=== PATIENT | male | born 1960 | race Caucasian/White ===

== ENCOUNTER → 2024-10-09 11:52 | Outpatient (CLI) | payer MEDICARE, OTHER, SELFPAY ==
--- NOTE | 2024-10-09 12:27 | EKG_ITS ---
[address] [address] [address] [address] Test Date: 2024-10-09 Pat Name: Corey Lopez Department: [facility] Room: Gender: Male Mental Health Unit Lead Psychologist: LISA : 1960 Requested By: Order Number: [id number] Reading MD: Jason Beard Measurements Intervals [place] Rate: 53 P: 44 PA: 152 QRS: 18 QRSD: 82 T: 28 QT: 422 QTc: 395 Interpretive Statements Sinus bradycardia with sinus arrhythmia Electronically Signed On 10-11-2024 19:03:06 PST by Jason Beard
[2024-10-09 12:30] LABS: Add Manual Diff / Slide Review NO; Basophils Absolute Auto 100 /uL (0-100); Basophils Percent Auto 0.8 % (0-2); Eosinophils Absolute Auto 100 /uL (0-450); Eosinophils Percent Auto 1.8 % (2-4); Hematocrit 46.9 % (41-53); Hemoglobin 15.8 g/dL (13.5-17.5); Lymphocytes Absolute Auto 1700 /uL (1100-4500); Lymphocytes Percent Auto 27.6 % (25-40); Mean Corpuscular HGB Conc 33.7 % (30-36); Mean Corpuscular Hemoglobin 30.8 PG (26-34); Mean Corpuscular Volume 91.6 fL (80-100); Monocytes Absolute Auto 500 /uL (0-900); Monocytes Percent Auto 8.1 % (3-14); Neutrophils Absolute Auto 3800 /uL (1500-7000); Neutrophils Percent Auto 61.7 % (50-75); Platelet Count 227 X10^3/uL (150-400); Red Blood Cell Count 5.12 X10^6/uL (4.5-5.9); Red Cell Distribution Width 13.7 % (11.6-14.8); White Blood Cell Count 6.1 X10^3/uL (4.5-11.0)
[2024-10-09 12:44] LABS: Hemoglobin A1C% w Est Avg Glu 5.2 % (4.0-6.0)
[2024-10-09 12:50] LABS: Appearance Urine UA CLEAR; Bilirubin Urine UA NEGATIVE (NEGATIVE); Color Urine UA YELLOW; Glucose Urine UA NEGATIVE (Negative); Ketones Urine UA NEGATIVE (NEGATIVE); Leukocyte Esterase Urine UA NEGATIVE (NEGATIVE); Nitrite Urine UA NEGATIVE (Negative); Occult Blood Urine UA NEGATIVE (Negative); Protein Urine UA NEGATIVE (Negative); Urobilinogen Urine UA 0.2 E.U./dL (0.2); pH Urine UA 5.5 (4.5-8.0)
[2024-10-09 12:54] LABS: Blood Urea Nitrogen 19 mg/dL (9-20); Calcium 9.3 mg/dL (8.4-10.2); Carbon Dioxide 25 mmol/L (22-32); Chloride 107 mmol/L (98-107); Estimated Glomerular Filt Rate > 60 mL/min (>60); Glucose 98 mg/dL (80-110); HEMOLYSIS < 15 (0-50); Potassium 4.5 mmol/L (3.4-5.1); Sodium 139 mmol/L (137-145)
[2024-10-09 12:57] LABS: Bacteria Urine None Seen; Culture Indicated Urine Cult Not Indicated; RBC Urine None Seen (0-5/HPF); Squamous Epithelial Cell Urine None Seen (0-5/HPF); Urine Volume 10mL (spun); WBC Urine None Seen (0-5/HPF)
== END ==
PROVIDERS: Referring Provider Orthopaedic Surgery; Visit Provider Orthopaedic Surgery
DX: Z01.818 Encounter for other preprocedural examination (principal); R73.9 Hyperglycemia, unspecified; Z01.812 Encounter for preprocedural laboratory examination; N39.0 Urinary tract infection, site not specified
CPT/HCPCS: 36415; 80048; 81001; 83036; 85025; 93005

== ENCOUNTER 2025-01-02 08:44 | Day surgery (SDC) | payer MEDICARE, OTHER, SELFPAY ==
[2024-12-28 09:43] VITALS: BMI 25.8
[2025-01-02] VITALS (11 sets, daily range): BP systolic 90–143; BP diastolic 54–76; PULSE 50–74; RESP 11–19; TEMP 35.7–36.6; O2SAT 95–99; BMI 26.6
--- NOTE | 2025-01-02 06:00 | DI.RAD.S_ITS ---
PROCEDURE: XR KNEE LT 1TO2V INDICATIONS: TKA TECHNIQUE: 2 view(s) of the knee acquired. COMPARISON: [facility] [place], ART[place]O, XR KNEE 4+ VIEWS LEFT, 07/26/2024, 14:23. FINDINGS: Bones: Patient is status post knee joint arthroplasty. Hardware components are in expected positions. Visualized bony structures are intact. Soft tissues: Overlying postoperative changes are noted. IMPRESSION: Expected post-operative appearance of a knee arthroplasty. Dictated by: Inderjit Palencia M.D. on 01/02/2025 at 14:37 Approved by: Inderjit Palencia M.D. on 01/02/2025 at 14:37
[2025-01-02] MEDS: LACTATED RINGERS 1,000 ML 42 ML IV ×2 (09:31→13:37)
[2025-01-02] MEDS: VANCOMYCIN 1,000 MG in SODIUM CHLORIDE 0.9% 250 ML 250 MG IV (09:31)
[2025-01-02] MEDS: ACETAMINOPHEN 325 MG TABLET 975 MG PO (09:32)
[2025-01-02] MEDS: CELECOXIB 200 MG CAPSULE 400 MG PO (09:32)
--- NOTE | 2025-01-02 10:19 | PM.PREOP ---
Pre-operative Note Interval Note History & Physical reviewed/Exam performed by Physician: Yes Changes to H&P: No
--- NOTE | 2025-01-02 10:19 | PM.OP.1 ---
Operative Date/Time/Diagnoses Date of procedure: 01/02/25 Time of procedure: 11:00 Pre-op diagnosis: Left knee OA Post-op diagnosis: same Procedure & Clinicians Procedure: Left total knee arthroplasty Same procedure as scheduled: Yes Indications: The patient has had progressively worsening left knee pain with radiographic changes consistent with arthritis. Non-operative management has failed and the patient has requested total knee replacement. The risks, benefits and alternatives to surgery were discussed with the patient prior to proceeding. Risks discussed included, but were not limited to, failure to relieve pain, stiffness, infection, nerve damage, deep venous thrombosis, pulmonary embolism, stroke, coma, heart attack, permanent paralysis and , as well as the potential need for eventual revision of the prosthetic. Surgeon: Celeste Nixon Certified Indoor Environmentalist: Julieta Suh Anesthesia Type: General Operative Notes Findings: Severe left knee osteoarthritis, adequate bone, adequate stability Closure Type: primary Specimen(s): none sent Prosthetic devices, grafts, tissues, transplants, or devices: Nixon and Nephew nayan BCS 2 size femur 7, size 7 tibia, 38 mm patella, +10 poly Estimated Blood Loss (mL): 250 Blood products transfused: none Tourniquet time (min): 89 Procedure in detail: The patient was seen in the pre-operative area, where the patient identified the left knee as the operative site and this was marked with my initials. The patient received pre-operative antibiotics, and was taken to the operating room and placed on the operative table in the supine position. After satisfactory anesthesia, a director government out was performed. The left leg was encircled with a tourniquet about the proximal thigh, and the leg was prepared from the toes to the tourniquet with ChloroPrep in the usual fashion and draped through sterile drapes. The leg was elevated and exsanguinated with Eschmark bandage and the tourniquet inflated to [250] mmHg pressure. A PA was used during the procedure and was essential for intraoperative retraction and safe implantation of the components. The knee was approached through an approximately 18 cm incision centered over the patella and carried into the knee through a medial parapatellar arthrotomy. Portion of the medial and lateral meniscus was resected. Soft tissue was carefully mobilized around the patella the patella was measured with a caliper. Bone was resected from the patella and the patellar height was reconstituted with up an appropriate sized patellar component. A cover was then placed on the patella. A small amount of additional medial and lateral meniscus was resected. Derek pins were placed for robotic assisted navigation. A plan was taken and carefully developed in order to optimize range of motion and stability. He had about 11? of preoperative varus. We specifically released some of the medial collateral ligament superficially in order to allow balancing of the knee. A good quality plan was achieved. The Cori robotic assisted bur was used for the distal femoral resection. It looked like an appropriate distal femoral cut and the cut was made without difficulty. The rotation was assessed and the appropriate size femoral guide was placed on the distal femur and finishing cuts were made. There was no evidence of notching. The anterior, posterior and chamfer cuts were then made. The posterior osteophytes and soft tissues were then removed. The posterior capsule was injected with part of a mixture of 60 ml 0.25% Marcaine mixed with 20 ml Exparel for post operative pain control. The remainder of this mixture was injected into the capsule and subcutaneous tissues during cement curing. The tibial guide was meticulously navigated. The proximal tibial cut was made without difficulty. The rotation was assessed. The patient was placed in extension residual medial and lateral meniscus as well as any residual bone was carefully resected. [No] additional tibia was resected. Hemostasis was achieved especially posteriorly. Additional local was injected into the posterior capsule. The extension gap was assessed. The femoral component was trial was placed and the notch was finished. Trial tibial and femoral components were then placed and the knee placed through a range of motion. Range of motion was [0-130], with good stability throughout the range. The trials were then removed, and the tibia was finished. The bone was prepared with pulsatile lavage, and dried with a sponge. Cement was applied and the final prosthetics placed. Excess cement was removed during and after cement curing. A brief Betadine soak was performed. After confirming there was no extruded cement posteriorly, the final tibial insert was placed. The knee was copiously irrigated and the tourniquet deflated. Hemostasis was obtained with the Bovie cautery. The capsule was closed with interrupted # 1 Vicryl suture. The subcutaneous layer was closed with barbed sutures, and the skin with a running 3-0 V-Lock suture and Surgical glue. An Aquacel Ag dressing was applied and the patient was taken to recovery having tolerated the procedure well. Complications: none Post-operative Condition: stable Disposition: Acute Care Plan for aftercare: The patient will be maintained on a standard total knee replacement protocol with weight bearing as tolerated. The patient will receive aspirin and sequential compression devices for DVT prophylaxis. The patient will be discharged home when safe for the home environment.
--- NOTE | 2025-01-02 10:43 | SUR.PREOP ---
Block start time [1039] . Time out at 1030 Monitoring initiated and maintained throughout procedure. Oxygen and medications given per anesthesiologist instructions. Patient remained stable throughout procedure, no adverse reactions noted. Block end time [1041].
[2025-01-02] MEDS: CEFAZOLIN 2 GM/100 ML PREMIX 100 ML IV (10:55)
[2025-01-02] MEDS: TRANEXAMIC ACID 1,000 MG VIAL 1000 MG INJ ×2 (11:05→12:44)
--- NOTE | 2025-01-02 11:18 | SUR.OPER ---
Supine on padded OR bed. Pillow under head, arms secured on padded armboards <90 degree abduction. Safety belt across torso. Non-operative leg secured with tape over blanket over lower leg. Operative leg secured in DeMayo/Rufus/Nathe positioner. Foam padded brace at thigh of operative leg.
[2025-01-02] MEDS: BUPIVACAINE LIPOSOME 266 MG/20 ML VIAL INJ (11:24)
[2025-01-02] MEDS: BUPIVACAINE 0.25% (PF) 60 ML, EPINEPHrine 0.3 MG INJ (11:25)
--- NOTE | 2025-01-02 13:30 | SUR.PHASEI ---
Report called to CAMILA Rizo.
[2025-01-02] MEDS: ONDANSETRON 4 MG/2 ML INJ IV (13:34)
--- NOTE | 2025-01-02 13:36 | SUR.PHASEI ---
Marsha given per Dr. Donald.
--- NOTE | 2025-01-02 13:54 | SUR.PHASEI ---
Patient transferred to the floor with his belongings bag, phone and glasses. Bedside report given to Vilma. VS stable. Left knee dressing CDI.
--- NOTE | 2025-01-02 16:15 | PT.IIE ---
Current Diagnoses Unilateral primary osteoarthritis, left knee (01/02/25) Surgery Performed Operation Date: 01/02/25 10:45 Actual Procedures p Total Knee Arthroplasty - Robot(Left) - Celeste Nixon MD Surgical History (Last Updated 12/28/24 @ 09:51 by Flora Hauser, RN) H/O vasectomy History of bowel resection Medical History (Last Updated 12/28/24 @ 10:37 by Flora Hauser, RN) Ileostomy in place Knee fracture, left Left inguinal hernia (~2020) Ulcerative colitis Physical Therapy Inpatient Evaluation/Re-Eval M1 PT/OT-IP Prior Functional Status Start: 01/02/25 17:06 Freq: NEEDED Status: Active Protocol: Document 01/02/25 16:15 AB (Rec: 01/02/25 17:23 AB [id number]) Medical Review Prior Functional Status Medical History Reviewed Yes Communication able to make needs known Mobility and Gait pt stated that he was independent with all mobilities and ambulation wihtout AD Social History Household Members spouse Living Arrangements House Number of Floors (Floors) One Floor Number of Stairs To Enter/Railing? pt plans to stay at a friend's house on d/c: info provided is regarding pt's friends' house: with 2 steps without rails to enter Home Environment Standard Height Toilet,Tub/ Shower Home Equipment Front Wheel Walker,Straight Cane,Raised Toilet Seat w/ Armrests,Hand Held Shower Additional Social History Comment pt stated that he will be staying in a motel tonight and will go to his friend's house tomorrow M2 PT-IP Current Condition Start: 01/02/25 17:06 Freq: NEEDED Status: Active Protocol: Document 01/02/25 16:15 AB (Rec: 01/02/25 17:23 AB [id number]) Physical Therapy Current Condition Current Condition Evaluation Date 01/02/25 Treatment Diagnosis s/p L TKA; difficulty in walking Onset Date 01/02/25 M3 PT-IP Subjective Start: 01/02/25 17:06 Freq: NEEDED Status: Active Protocol: Document 01/02/25 16:15 AB (Rec: 01/02/25 17:23 AB [id number]) Subjective Physical Therapy Visit Type Type Initial Evaluation Visit Start Time 16:15 Visit Stop Time 17:00 Number of COOK SUPERVISOR Visits 0 Physical Therapy Visit Comments Patient Comments agreeable to do PT; wants to go home tonight Therapy Pain Assessment Pain Present Pain Present Denied Pain M4 PT-IP Mobility and Gait Start: 01/02/25 17:06 Freq: NEEDED Status: Active Protocol: Document 01/02/25 16:15 AB (Rec: 01/02/25 17:23 AB [id number]) PT-Bed Mobility Assessment Supine to Sit Supine to Sit Standby Assistance PT-Transfer Assessment Sit to and From Stand Sit to and from Stand Minimal Assistance,1 Person Assistance,Use of Upper Extremities Equipment Transfer Assistive Device Gait Belt,Front Wheeled Walker Orthotic/Prosthetic Devices or Brace: No Transfers Transfer Destination Chair Transfer Technique ambulated Transfer Ability Level of Assist Minimal Assistance,1 Person Assistance,Use of Upper Extremities Comments Mobility Comments pt in bed and spouse in room. pt stated that RLE is still ~ 50% numb but LLE is ok. informed pt regarding numbness and how it affecting motor control and stability. pt wanting to go home tonight and wants to do PT. obtained PLOF and home set up. BP: 131 /78 O2 sat: 97% HR: 51-55 completed supine to sit SBA. able to sit on EOB SBA. BP: 137/81 O2 sat 97 and HR: 59- 65 pt completed sit to stand min A and cues. ambulated in room using FWW initially mod A and cued for L quads activation and RLE control. pt stated that RLE is more numb than he thought. cued pt on RLE control and was able to walk in room afterwards with min A and cues. pt sat on chair. pt insisting on going home despite decrease RLE control. caregiver training conducted. educated spouse on how to use safety belt and how to assist pt. educated pt and spouse on stair climbing. spouse was able to put safety belt on pt and assisted pt with sit to stand. spouse ambulated pt towards the platform step using FWW min A. pt completed up/down step using SPC + DOOR TO DOOR SALES REPRESENTATIVE with PT assisting pt on first attempt requiring max A and max cues. pt and spouse counter demonstrated and PT assisted pt as well. pt ambulated back to his room using FWW min A and sat on chair. educated pt on safety. pt stated that they don't have to do stairs until tomorrow and they will have another person to assist them. pt and spouse without further concerns. Left pt with NAC. Gait Assessment Gait Gait Assistance Required: Minimum Assistance,Moderate Assistance Distance (Feet) 25 Able to Maintain Weight Bearing Status Yes During Gait Assistive Devices Assistive Device Gait Belt,Front Wheeled Walker Orthotic/Prosthetic Devices or Brace: No Gait Deviations General Gait Pattern Antalgic,Decreased Stride Length,Decreased Feet Clearance Factors Limiting Gait Function Factors Limiting Gait Function Decreased Activity Tolerance, Decreased Strength, Incoordination,Limited Range of Motion,Poor Balance,Poor Safety Awareness Stair Climbing Assessment Evaluation Level of Assist On Stairs Maximal Assistance,1 Person Assistance,2 Person Assistance Devices Stair Climbing Assistive Devices Straight Cane Technique/Endurance Stair Climbing Direction Ascend and Descend Stair Climbing Technique Step to Step Number of Steps Climbed 1 Query Text: Stair Climbing Set # Repetitions (reps) 2 PT-Balance Assessment Sitting Balance and Reactions Static Sitting Balance Ability Normal Dynamic Sitting Balance Ability Good Standing Balance and Reactions Static Standing Balance Ability Fair Dynamic Standing Balance Ability Fair Device Used FWW M5 PT-IP Objective Assessments Start: 01/02/25 17:06 Freq: NEEDED Status: Active Protocol: Document 01/02/25 16:15 AB (Rec: 01/02/25 17:23 AB [id number]) Orientation Orientation/Cognition Level of Alertness Alert Orientation Name,Place,Situation Language Function Ability Hard of Hearing Safety Awareness Decreased Safety Awareness Memory Description No Deficits Noted Sensation Assessment Sensation Gross Sensation Right LE Impaired Sensation Description Numbness Muscle Tone Muscle Tone WNL Yes M6 PT-IP Treatment Start: 01/02/25 17:06 Freq: NEEDED Status: Active Protocol: Document 01/02/25 16:15 AB (Rec: 01/02/25 17:23 AB [id number]) Physical Therapy Treatment Education Education Provided Precautions,Weight Bearing Status,Post-Op Packet,Safety M7 PT-IP Assessment and Plan Start: 01/02/25 17:06 Freq: NEEDED Status: Active Protocol: Document 01/02/25 16:15 AB (Rec: 01/02/25 17:23 AB [id number]) PT Summary Assessment and Plan Potential Rehabilitation Potential Good Status of Condition at Evaluation Evolving Summary Impairments Pain,ROM,Strength,Balance, Coordination,Sensation,Tone, Cognition,Bed Mobility, Transfers,Gait,Activity Tolerance Assessment Summary pt is a 64 y/o M s/p L TKA POD 0. pt is WBAT on LLE. pt still has LE numbness affecting level of assistance and stability. pt insisting on going home tonight. caregiver training conducted and spouse was able to assist pt with transfers and ambulation using FWW but needing more assist with stair climbing. pt stated that he does not need to do stairs until tomorrow and they will have another person to assist them as well. pt has outpt PT set up. Goals Bed Mobility Goal Independent Transfer Goal Independent,Front Wheeled Walker Gait Goal Independent,Front Wheel Walker Gait Distance 200 Other Goals up/down 2 steps SPC + DOOR TO DOOR SALES REPRESENTATIVE CGA Days to Meet Goals 5 Frequency of Treatment Frequency Of Treatment Twice a Day Treatment Plan Physical Therapy Treatment Plan Bed Mobility Training,Transfer Training,Gait Training, Therapeutic Exercise,Balance Retraining,Post Op Education, Discharge Planning,Hot or Cold Pack,Neuromuscular Re-ed, Coordination Retraining,Manual Therapy Weight Bearing Status Weight Bearing Status Weight Bear as Tolerated Allowed Weight Bearing Amount (enter % LLE WBAT or #) (%) Recommendations To Nursing Amount of Assist Needed 1 Person Assist Discharge Recommendations PT Discharge Recommendations Home with Assistance, Outpatient PT Transportation Needs at Discharge Private Vehicle,Wheelchair/ Cabulance
[2025-01-02] MEDS: ACETAMINOPHEN 325 MG TABLET 650 MG PO (17:07)
== END 2025-01-02 19:02 | disposition home or self-care (01) ==
LOC: OR 08:45 → AC 11:27
PROVIDERS: Referring Provider Orthopaedic Surgery; Visit Provider Orthopaedic Surgery
PROC: 0SRD0JZ Replacement of Left Knee Joint with Synthetic Substitute, Open Approach (ICD-10-PCS; CPT 27447; principal; 2025-01-02 10:45)
DX: M17.12 Unilateral primary osteoarthritis, left knee (principal); G89.18 Other acute postprocedural pain; M25.762 Osteophyte, left knee
CPT/HCPCS: 27447; 20985; 64450; 73560; 97162; 97530; C1776; J0171; J0666; J0690; J1100; J2250; J2405; J2704; J3010